=== PATIENT | male | born 2000 | race Caucasian/White ===

== ENCOUNTER 2020-06-17 15:16 | Emergency (ER) | payer OTHER ==
[~2020-06-17] VITALS: Ht 185.4 cm; Wt 94.4 kg
[2020-06-17] MEDS ORDERED: NS 1,000 ML IV ONE (15:30)
[2020-06-17] MEDS ORDERED: ONDANSETRON 4MG/2ML VIAL IV ONE (15:35)
[2020-06-17 15:55] LABS: BASO % 0.3 % (0.0-1.0); EOS % 0.1 % (0.0-3.0); HEMATOCRIT 48.3 % (42.0-52.0); HEMOGLOBIN 15.8 g/dl (13.5-17.5); LYMPH # 1.4 10^3/uL (1.5-5.0); LYMPH % 10.1 % (24.0-44.0); MEAN CORPUSCULAR HGB CONC 32.7 g/dl (32.0-36.5); MEAN CORPUSCULAR VOLUME 91.8 fl (80.0-96.0); MONO # 0.4 10^3/uL (0.0-0.8); MONO % 3.2 % (2.0-8.0); NEUTROPHILS # 11.9 10^3/uL (1.5-8.5); NEUTROPHILS % 85.7 % (36.0-66.0); PLATELET COUNT, AUTOMATED 312 10^3/uL (150-450); RED BLOOD COUNT 5.26 10^6/uL (4.30-6.10); WHITE BLOOD COUNT 13.9 10^3/uL (4.0-10.0)
[2020-06-17 16:58] LABS: ALBUMIN 4.7 GM/DL (3.2-5.2); ALT/SGPT 54 U/L (12-78); AMYLASE 98 U/L (25-115); BILIRUBIN,DIRECT 0.2 MG/DL (0.0-0.2); BILIRUBIN,TOTAL 0.7 MG/DL (0.2-1.0); BLOOD UREA NITROGEN 18 MG/DL (7-18); CALCIUM LEVEL 10.2 MG/DL (8.5-10.1); CARBON DIOXIDE LEVEL 26 MEQ/L (21-32); CHLORIDE LEVEL 105 MEQ/L (98-107); CREATININE FOR GFR 1.25 MG/DL (0.70-1.30); GLOMERULAR FILTRATION RATE > 60.0 (>60); GLUCOSE, FASTING 90 MG/DL (70-100); LIPASE 99 U/L (73-393); POTASSIUM SERUM 4.7 MEQ/L (3.5-5.1); SODIUM LEVEL 139 MEQ/L (136-145); TOTAL PROTEIN 8.6 GM/DL (6.4-8.2)
[2020-06-17] MEDS ORDERED: ONDA4TAB6 PO (17:45)
[2020-06-17 17:54] VITALS: BP 134/85
== END 2020-06-17 18:01 | disposition home or self-care (01) ==
LOC: M ED 15:16
DX: D72.829 Elevated white blood cell count, unspecified (principal); R11.2 Nausea with vomiting, unspecified; R19.7 Diarrhea, unspecified
CPT/HCPCS: 80048; 80076; 82150; 83690; 85025; 87804; 96361; 96374; 99284; J2405; U0003

== ENCOUNTER 2020-09-19 20:08 | Observation (INO) | payer OTHER ==
[~2020-09-19] VITALS: Ht 182.9 cm; Wt 92.2 kg
[~2020-09-19 20:08] MED LIST: ONDA4TAB6 PO
[2020-09-19] MEDS: DOCUSATE SODIUM 100MG CAPSULE PO SCH (21:00)
[2020-09-20] VITALS (7 sets, daily range): BP systolic 118–140; BP diastolic 58–86; O2SAT 97
--- NOTE | 2020-09-20 00:39 | REPVR ---
PROCEDURE INFORMATION: Exam: XR Chest Exam date and time: 09/19/2020 11:49 PM Age: 20 years old Clinical indication: Other: Near syncope TECHNIQUE: Imaging protocol: XR of the chest. Views: 2 views. COMPARISON: No relevant prior studies available. FINDINGS: Lungs: Unremarkable. No consolidation. Pleural spaces: Unremarkable. No pleural effusion. No pneumothorax. Heart/Mediastinum: Unremarkable. No cardiomegaly. Bones/joints: Unremarkable. IMPRESSION: No acute findings. Electronically signed by: Curtis García On 09/20/2020 00:38:58 AM
[2020-09-20 00:49] LABS: HEMOGLOBIN 18.8 g/dl (13.5-17.5); MEAN CORPUSCULAR HEMOGLOBIN 31.5 pg (27.0-33.0); MEAN CORPUSCULAR HGB CONC 34.2 g/dl (32.0-36.5); MEAN CORPUSCULAR VOLUME 92.3 fl (80.0-96.0); PLATELET COUNT, AUTOMATED 398 10^3/uL (150-450); RED BLOOD COUNT 5.96 10^6/uL (4.30-6.10); WHITE BLOOD COUNT 13.2 10^3/uL (4.0-10.0)
[2020-09-20 01:21] LABS: AMPHETAMINES LEVEL URINE NEGATIVE (NEGATIVE); BARBITURATES URINE NEGATIVE (NEGATIVE); BENZODIAZEPINES URINE NEGATIVE (NEGATIVE); CANNABINOIDS URINE NEGATIVE (NEGATIVE); COCAINE METABOLITE URINE NEGATIVE (NEGATIVE); METHADONE URINE NEGATIVE (NEGATIVE); OPIATES URINE NEGATIVE (NEGATIVE); PHENCYCLIDINE URINE NEGATIVE (NEGATIVE)
[2020-09-20 01:34] LABS: ACETAMINOPHEN LEVEL < 2.0 UG/ML (10.0-30.0); ALBUMIN 5.3 GM/DL (3.2-5.2); ALT/SGPT 82 U/L (12-78); BILIRUBIN,DIRECT 0.4 MG/DL (0.0-0.2); BILIRUBIN,TOTAL 1.3 MG/DL (0.2-1.0); BLOOD UREA NITROGEN 47 MG/DL (7-18); CALCIUM LEVEL 10.9 MG/DL (8.5-10.1); CARBON DIOXIDE LEVEL 27 MEQ/L (21-32); CHLORIDE LEVEL 92 MEQ/L (98-107); CREATININE FOR GFR 2.32 MG/DL (0.70-1.30); ETHYL ALCOHOL (ETHANOL) 0.004 % (0.000-0.010); GLOMERULAR FILTRATION RATE 37.7 (>60); GLUCOSE, FASTING 109 MG/DL (70-100); POTASSIUM SERUM 4.5 MEQ/L (3.5-5.1); SALICYLATE LEVEL < 1.7 MG/DL (5.0-30.0); SODIUM LEVEL 133 MEQ/L (136-145); TOTAL PROTEIN 9.9 GM/DL (6.4-8.2)
[2020-09-20] MEDS ORDERED: MAALOX 30 ML SUSP *UDC PO PRN (02:05)
[2020-09-20] MEDS ORDERED: MOM 30ML SUSPENSION UDC PO PRN (02:05)
[2020-09-20] MEDS ORDERED: ACETAMINOPHEN TAB 650MG DOSE (2X325MG) PO PRN (02:05)
[2020-09-20] MEDS ORDERED: HYDR1CR EXT (02:29)
[2020-09-20] MEDS: NS 1,000 ML IV SCH ×4 (02:40→21:22)
[2020-09-20 02:47] LABS: CPK CREATINE PHOSPHOKINASE 12029 U/L (39-308)
[2020-09-20 03:08] LABS: RSV AMPLIFICATION NEGATIVE (NEGATIVE)
[2020-09-20 05:22] LABS: BASO # 0.1 10^3/uL (0.0-0.2); BASO % 0.7 % (0.0-1.0); EOS # 0.1 10^3/uL (0.0-0.5); EOS % 0.4 % (0.0-3.0); HEMATOCRIT 52.4 % (42.0-52.0); HEMOGLOBIN 17.8 g/dl (13.5-17.5); LYMPH # 2.4 10^3/uL (1.5-5.0); LYMPH % 19.8 % (24.0-44.0); MEAN CORPUSCULAR HEMOGLOBIN 31.1 pg (27.0-33.0); MEAN CORPUSCULAR VOLUME 91.4 fl (80.0-96.0); MONO # 1.5 10^3/uL (0.0-0.8); MONO % 12.1 % (2.0-8.0); NEUTROPHILS # 8.1 10^3/uL (1.5-8.5); NEUTROPHILS % 66.1 % (36.0-66.0); PLATELET COUNT, AUTOMATED 386 10^3/uL (150-450); RED BLOOD COUNT 5.73 10^6/uL (4.30-6.10); WHITE BLOOD COUNT 12.2 10^3/uL (4.0-10.0)
[2020-09-20] MEDS: HEPARIN SOD (PORCINE) 5000UNITS/ML 1ML VIAL/SYRINGE SC SCH ×3 (05:34→21:22)
--- NOTE | 2020-09-20 06:13 | HPEPDOC ---
General Date of Admission 09/20/20 Date of Service: Sep 20, 2020 Chief Complaint The patient is a 20-year-old male admitted with a reason for visit of Gen Medical complaint. Source: Patient, RN/MD Exam Limitations: Other (Intermittent confusion) Severity: Moderate Associated Symptoms: Loss of appetite, Malaise, Nausea, Vomiting, Weakness History of Present Illness Mr. Demarco is a 20 year-old -[place] male [place] from [place] with no significant PMH presents with confusion, nausea, vomiting for 5 -6 days to the best of his remembrance. He states he spoke to his commanding officer, who didn't like what he told him and took him to the clinic for IV fluids because they believed he was dehydrated. Patient is confused on what day it is and cannot remain focused long enough to complete a thought before he is speaking about dogs. In reviewing patient's blood work he is shows low Sodium 133, BUN 47, serum 2.32, eGFR 37.7; AST 207, ALT 82; [place] 29336, urine toxicity is negative. Patient nurse reported hearing him say he wants to harm himself and when I asked patient he says no. He will admitted to observation unit for CHANDRIKA secondary to Dehydration, Rhabdomyolysis; Hyponatremia, Confusion which maybe related to him reporting lack of sleep for 5 days (sleep deprivation) while in training with electrolyte replacement, 1:1 for safety as he has intermittent confusion and need for ongoing evaluation. Home Medications Scheduled PRN Hydrocortisone (Hydrocortisone) 28 Gm Cream..g., 1 DOSE EXT BID PRN for RASH, (Reported) Allergies Coded Allergies: No Known Allergies (Unverified , 06/17/20) Past Medical History Medical History No prior medical history. Denies Surgical History Denies surgical history Family History Significant Family History: No pertinent family hx Social History * Smoker: Denies Alcohol: Denies Drugs: denies Psychosocial History: No pertinent psych hx A-FIB/CHADSVASC A-FIB History Current/History of A-Fib/PAF?: No Review of Systems Constitutional: Reports: Malaise, Weakness, Fatigue Eyes: Denies: Pain, Vision change, Conjunctivae inflammation, Eyelid inflammation, Redness, Other ENT: Denies: Head Aches, Ear Pain, Dysphagia, Sinus Congestion, Post Nasal Drip, Sore Throat, Epistaxis, Other Symptoms Skin: Denies: Rash, Lesions, Jaundice, Bruising, Itching, Dry, Breakdown, Nail Changes, Other Pulmonary: Denies: Dyspnea, Cough, Pleuritic Chest Pain, Other Symptoms Cardiovascular: Reports: Lt Headedness Gastrointestinal: Reports: Nausea, Vomiting Genitourinary: Denies: Dysuria, Frequency, Incontinence, Hematuria, Retention, Other Symptoms Hematologic: Denies: Bruising, Bleeding Excessively, Petecchia, Purpura, En larged Lymph Nodes, Other Hematologic Endocrine: Denies: Polydipsia, Polyphagia, Polyuria, Heat Intolerance, Cold Intolerance, Other Endocrine Sx Musculoskeletal: Reports: Muscle Pain, Spasms Neurological: Reports: Weakness, Confusion Psych: Reports: Memory Issues, Thoughts of Self Harm (denied), Thoughts of Fox rming Other (denied) Physical Examination General Exam: Positive: Alert, Cooperative, No Acute Distress Eye Exam: Positive: PERRLA, Conjunctiva & lids normal ENT Exam: Positive: Atraumatic, Pharynx Normal, Pinna Normal, Other ENT (lips and oral mucosa dry and pink) Neck Exam: Positive: +2 carotid pulse wo bruit Chest Exam: Positive: Clear to auscultation, Normal air movement Heart Exam: Positive: Rate Normal, Normal S1, Normal S2 Abdomen Exam: Positive: Normal bowel sounds, Soft Extremity Exam: Positive: Normal pulses Neuro Exam: Positive: Cranial Nerves 3-12 NL Psych Exam: Positive: Mood NL, Other (intermittent confusion) Vital Signs Vital Signs Date Time Temp Pulse Resp B/P (MAP) Pulse Ox O2 Delivery O2 Flow Rate FiO2 09/20/20 02:01 09/20/20 02:01 99.3 89 16 97 Room Air Laboratory Data Labs 24H Laboratory Tests 2 09/20/20 00:37: Nucleated Red Blood Cells % (auto) 0.0, Anion Gap 14, Glomerular Filtration Rate 37.7L, Calcium Level 10.9H, Total Bilirubin 1.3H, Direct Bilirubin 0.4H, Aspartate Amino Transf (AST/SGOT) 207H, Alanine Aminotransferase (ALT/SGPT) 82H, Alkaline Phosphatase 83, Total Protein 9.9H, Albumin 5.3H, Albumin/Globulin Ratio 1.2, Thyroid Stimulating Hormone (TSH) 1.530, Salicylates Level < 1.7L, Urine Opiates Screen NEGATIVE, Urine Methadone Screen NEGATIVE, Acetaminophen Level < 2.0L, Urine Barbiturates Screen NEGATIVE, Urine Phencyclidine Screen NEGATIVE, Urine Amphetamines Screen NEGATIVE, Urine Benzodiazepines Screen NEGATIVE, Urine Cocaine Metabolite Screen NEGATIVE, Urine Cannabinoids Screen NEGATIVE, Ethyl Alcohol Level 0.004 CBC/BMP Laboratory Tests 09/20/20 00:37 Problems (1) Acute renal failure Status: Acute Problem Specific Plan: Monitor Clinically, Repeat Labs Problem Text: Plan Admit to Observation Unit on telemetry with continuous pulse oximetry IVF 150 ml/hr for rehydration Re-assess morning labs and replace electrolytes as needed Fall precaution Advance diet (Regular) as tolerated Renal Ultrasound in AM 09/20/20. If CHANDRIKA do not improve or resolve with IV fluid rehydration, morning provider will determine if patients need Nephrology consult. Monitor I&O, daily weight, and vitals per [facility] protocol Hyponatremia-Mild -IV fluid replacement, re-assess with CMP on morning labs Acute Confusion (nurse heard patient said he wanted to harm himself) but adamantly denied this to me( provider)-Acute 1:1 ordered until confusion is gone. I do not see patient as wanting to harm himself and does not have a plan to harm himself and or others. Morning provider will determine if patient will need Psychiatry consult Confusion most likely due to severe dehydration with CHANDRIKA. Full code PPI Prophylaxis: not needed DVT Prophylaxis: SCDS with ODALYS JAMES, Heparin 5000 IU SQ TID Discharge: Pending clinical course. (2) Nausea vomiting and diarrhea Status: Acute Problem Specific Plan: Monitor Clinically, Repeat Labs Plan / VTE VTE Prophylaxis Ordered?: Yes VTE Exclusion Mechanical Proph: N/A:VTE Prophy Ordered VTE Exclusion Pharmacological: N/A:VTE Prophy Ordered TAYLOR CARROLL [facility] Sep 20, 2020 02:27
--- NOTE | 2020-09-20 06:36 | REPVR ---
PROCEDURE INFORMATION: Exam: US Retroperitoneal Limited, Kidneys Exam date and time: 09/20/2020 6:06 AM Age: 20 years old Clinical indication: Abnormal findings; Abnormal lab test; Abnormal kidney function lab tests; Additional info: Creat 2.3; Lauro TECHNIQUE: Imaging protocol: Real-time ultrasound of the retroperitoneum with image documentation. Examination was focused on the kidneys. COMPARISON: No relevant prior studies available. FINDINGS: Right kidney: The right kidney measures 11.0 x 5.0 x 5.2 cm. There is increased right renal cortical parenchymal echogenicity. There is no right renal mass, stone, cyst or hydronephrosis. Left kidney: The left kidney measures 10.8 x 5.3 x 5.5 cm. There is increased left renal cortical parenchymal echogenicity. There is no left renal mass, stone, cyst or hydronephrosis. Bladder: The urinary bladder is partially distended in appears grossly unremarkable. IMPRESSION: 1. Apparent increased renal cortical parenchymal echogenicity however with normal cortical thickness and sinus fat is possibly due to technique however findings can also be seen with medical renal disease. Correlate clinically and with renal function test. 2. No renal mass, stone, cyst or hydronephrosis seen. Electronically signed by: Remy Geronimo On 09/20/2020 06:35:51 AM
[2020-09-20] MEDS: DOCUSATE SODIUM 100MG CAPSULE PO SCH ×2 (07:45→21:22)
[2020-09-20] MEDS ORDERED: NS 1,000 ML IV ONE (08:25)
[2020-09-20] MEDS: NICOTINE 21MG/24HR 1 EA TRANSDERMAL TD SCH (09:00)
[2020-09-20 11:20] LABS: ALBUMIN 4.1 GM/DL (3.2-5.2); ALT/SGPT 72 U/L (12-78); BILIRUBIN,TOTAL 1.4 MG/DL (0.2-1.0); BLOOD UREA NITROGEN 40 MG/DL (7-18); CALCIUM LEVEL 9.1 MG/DL (8.5-10.1); CARBON DIOXIDE LEVEL 29 MEQ/L (21-32); CHLORIDE LEVEL 98 MEQ/L (98-107); CREATININE FOR GFR 1.48 MG/DL (0.70-1.30); GLOMERULAR FILTRATION RATE > 60.0 (>60); GLUCOSE, FASTING 92 MG/DL (70-100); POTASSIUM SERUM 4.2 MEQ/L (3.5-5.1); SODIUM LEVEL 135 MEQ/L (136-145); TOTAL PROTEIN 7.8 GM/DL (6.4-8.2)
--- NOTE | 2020-09-20 19:45 | ECGEPIP ---
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
[2020-09-21] VITALS: BP 155/66
[2020-09-21 04:00] VITALS: BP 129/76
[2020-09-21] MEDS: NS 1,000 ML IV SCH ×2 (05:09→11:05)
[2020-09-21 06:03] LABS: ALBUMIN 3.3 GM/DL (3.2-5.2); ALT/SGPT 59 U/L (12-78); BILIRUBIN,TOTAL 1.2 MG/DL (0.2-1.0); BLOOD UREA NITROGEN 20 MG/DL (7-18); CALCIUM LEVEL 8.5 MG/DL (8.5-10.1); CARBON DIOXIDE LEVEL 28 MEQ/L (21-32); CHLORIDE LEVEL 107 MEQ/L (98-107); CREATININE FOR GFR 0.86 MG/DL (0.70-1.30); GLOMERULAR FILTRATION RATE > 60.0 (>60); GLUCOSE, FASTING 84 MG/DL (70-100); MAGNESIUM LEVEL 2.4 MG/DL (1.8-2.4); POTASSIUM SERUM 4.2 MEQ/L (3.5-5.1); SODIUM LEVEL 140 MEQ/L (136-145); TOTAL PROTEIN 6.3 GM/DL (6.4-8.2)
[2020-09-21] MEDS: HEPARIN SOD (PORCINE) 5000UNITS/ML 1ML VIAL/SYRINGE SC SCH (06:03)
[2020-09-21] MEDS: DOCUSATE SODIUM 100MG CAPSULE PO SCH (08:11)
[2020-09-21 08:17] VITALS: BP 101/53
[2020-09-21] MEDS: NICOTINE 21MG/24HR 1 EA TRANSDERMAL TD SCH (08:27)
--- NOTE | 2020-09-21 10:04 | IPNPDOC ---
Subjective Date Seen The patient was seen on 09/21/20. Subjective Chief Complaint/HPI No complaints today. No confusion or delirium. Awake , alert and oriented x 3. He believes he may have had some bad chicken wings which started his nausea an vomiting and he could not keep any food or water down. He was in rigorous physical training during this time. Objective Physical Examination General Exam: Positive: Alert, Cooperative, No Acute Distress Eye Exam: Positive: PERRLA, Conjunctiva & lids normal ENT Exam: Positive: Atraumatic, Pharynx Normal, Pinna Normal, Other ENT (lips and oral mucosa dry and pink) Neck Exam: Positive: Supple Chest Exam: Positive: Clear to auscultation, Normal air movement Heart Exam: Positive: Rate Normal, Regular Rhythm, Normal S1, Normal S2; Negative: Murmurs, Rubs Abdomen Exam: Positive: Normal bowel sounds, Soft; Negative: Tenderness Extremity Exam: Negative: Clubbing, Cyanosis, Edema Neuro Exam: Positive: Normal Speech, Strength at 5/5 X4 ext, Normal Tone, Sensation Intact Assessment /Plan Assessment 20 year-old -[place] male [place] from [place] with no significant PMH presents with confusion, nausea, vomiting for 5 -6 days to the best of his remembrance. He was in a training exercise with limited food / water and almost no sleep. He stated he spoke to his commanding officer, who didn't like what he told him and took him to the clinic for IV fluids because they believed he was dehydrated. On initial presentation he was delirius. He was found to have CARMELA secondary to Dehydration, Rhabdomyolysis, Hyponatremia, acute metabolic encephalopathy likely related to him reporting lack of sleep for 5 days (sleep d eprivation) while in training exercise. Acute metabolic encephalopathy due to sleep deprivation and dehydration. resolved Carmela due to dehydration from nausea and vomiting and poor oral intake and rhabdomyolysis resolved with IVF Rhabdomyolysis resolved Nausea and vomiting likely viral gastroenteritis or food poisoning. resolved. Dispo: Home Plan/VTE VTE Prophylaxis Ordered?: Yes VTE Exclusion Mechanical Proph: N/A:VTE Prophy Ordered VTE Exclusion Pharmacological: N/A:VTE Prophy Ordered VS, I&O, 24H, Fishbone Vital Signs/I&O Vital Signs Date Time Temp Pulse Resp B/P (MAP) Pulse Ox O2 Delivery O2 Flow Rate FiO2 09/21/20 04:00 97.5 60 17 129/76 (93) 100 09/21/20 00:00 Room Air I&O- Last 24 Hours up to 6 AM 09/21/20 06:00 Intake Total 3910 ml Output Total 1050 ml Balance 2860 ml Laboratory Data 24H LABS Laboratory Tests 2 09/20/20 09:40: Anion Gap 8, Glomerular Filtration Rate > 60.0, Calcium Level 9.1#, Total Bilirubin 1.4H, Aspartate Amino Transf (AST/SGOT) 165H, Alanine Aminotransferase (ALT/SGPT) 72, Alkaline Phosphatase 65, Total Protein 7.8#, Albumin 4.1#, Albumin/Globulin Ratio 1.1 09/21/20 04:46: Anion Gap 5L, Glomerular Filtration Rate > 60.0, Calcium Level 8.5, Total Bilirubin 1.2H, Aspartate Amino Transf (AST/SGOT) 115H, Alanine Aminotransferase (ALT/SGPT) 59, Alkaline Phosphatase 51, Total Protein 6.3L, Albumin 3.3, Albumin/Globulin Ratio 1.1, Magnesium Level 2.4, Total Creatine Kinase 4609H CBC/BMP Laboratory Tests 09/20/20 09:40 09/21/20 04:46 ELSA CAMPBELL MD Sep 21, 2020 07:25
== END 2020-09-21 13:17 | disposition home or self-care (01) ==
LOC: M ED 20:08 → M ED INP 20:09 → ENRESERV 09-20 02:46 → M PCU 09-20 04:03 → OBSVTOIN 09-20 08:27 → INTOOBSV 09-20 08:27
PROVIDERS: ADMIT Family Medicine; ATTEND Family Medicine
DX: N17.9 Acute kidney failure, unspecified (principal); E86.0 Dehydration; M62.82 Rhabdomyolysis; R11.2 Nausea with vomiting, unspecified; R19.7 Diarrhea, unspecified; G93.41 Metabolic encephalopathy; Z72.820 Sleep deprivation; E87.1 Hypo-osmolality and hyponatremia
CPT/HCPCS: 36415; 71046; 76775; 80048; 80053; 80076; 80143; 80307; 82077; 82550; 83735; 84443; 85025; 85027; 87631; 93005; 96360; 96372; 99284; J1644